=== PATIENT | female | born 1960 | race Hispanic/Latino ===

== ENCOUNTER 2021-06-04 14:25 | Emergency (ER) | payer OTHER ==
[~2021-06-04] VITALS: Ht 157.5 cm; Wt 59.0 kg
[~2021-06-04 14:25] MED LIST: CITALOPRAM HBR20 MG PO; CLONIDINE HCL0.1 MG PO; COZAAR50 MG PO; FENOFIBRATE54 MG PO; JANUMET 50-1,01 EACH PO; LEVOTHYROXINE50 MCG PO; VITAMIN D32000 UNI1 PO
[2021-06-04] MEDS ORDERED: AMLODIPINE BESYL5 MG PO (14:49)
[2021-06-04] MEDS ORDERED: METFORMIN HCL500 M1 PO (14:50)
[2021-06-04] MEDS ORDERED: HYDROCODON-ACE1 EA11 PO (15:46)
== END 2021-06-04 16:33 | disposition home or self-care (01) ==
LOC: ED 14:25
PROC: 2W3DX1Z Immobilization of Left Lower Arm using Splint (ICD-10-PCS; principal; 2021-06-04)
DX: S62.232A Other displaced fracture of base of first metacarpal bone, left hand, initial encounter for closed fracture (principal); S00.83XA Contusion of other part of head, initial encounter; I10 Essential (primary) hypertension; E11.9 Type 2 diabetes mellitus without complications; E03.9 Hypothyroidism, unspecified; Z87.891 Personal history of nicotine dependence; Z90.89 Acquired absence of other organs; Z79.899 Other long term (current) drug therapy; W01.0XXA Fall on same level from slipping, tripping and stumbling without subsequent striking against object, initial encounter; Y99.0 Civilian activity done for income or pay
CPT/HCPCS: 29105; 73130; 99284-25; A9270

== ENCOUNTER 2021-06-06 08:20 | Day surgery (SDC) | payer OTHER ==
[~2021-06-06 08:20] MED LIST changes: +AMLODIPINE BESYL5 MG PO; +HYDROCODON-ACE1 EA11 PO; +METFORMIN HCL500 M1 PO
--- NOTE | 2021-06-06 10:47 | NUR ---
UPDATED PT ON WAITING TIME PRIOR TO PROCEDURE. DENIES NEEDS. REPORTS CONTINUED 5/10 LEFT WRIST PAIN.
[2021-06-06] MEDS ORDERED: HYDROCODON-ACE1 EA10 PO (12:13)
--- NOTE | 2021-06-06 12:14 | NUR ---
06/06/21 1214 Sheets,Sunshine 1208 PT ARRIVED TO PACU ON 6L VIA MASK, PT ASLEEP AND SNORING NOTED. RESP EVEN AND UNLABORED. PILLOW PLACED UNDER LEFT ARM FOR ELEVATION. VSS.
--- NOTE | 2021-06-06 13:24 | NUR ---
1300: PATIENT BACK IN DAY SURGERY ROOM FROM PACU. DENIES PAIN. PATIENT DROWSY. C/O NUMBNESS TO LEFT FINGERS. CAP REFILL TO LEFT FINGERS WNL. LEFT HAND AND WRIST DRESSING CDI. LEFT ARM IN SLING. ICE PACK TO LEFT HAND. LEFT ARM ELEVATED ON PILLOW. IV SITE WNL. SCDs ON. TOLERATED WATER AND EATING SALTINE CRACKER. CALL LIGHT WITHIN REACH. 1320: PATIENT ASSISTED OOB AND TO BATHROOM. GAIT SLIGHTLY UNSTEADY. VOID WITHOUT DIFFICULTY. PATIENT ASSISTED BACK TO ROOM/BED. GAIT SLIGHTLY UNSTEADY BACK TO ROOM. SCDs REPLACED. IV SALINE LOCKED. CALL LIGHT WITHIN REACH.
--- NOTE | 2021-06-06 15:01 | NUR ---
REVIEWED DISCHARGE INSTRUCTIONS WITH PT AND SPOUSE AT BEDSIDE. RX GIVEN TO SPOUSE WITH COPY OF DISCHARGE INSTRUCTIONS. PT DENIES PAIN OR NAUSEA. STEADY ON FEET WITH ONE PERSON STAND BY ASSIST. AMBULATES TO BATHROOM AND VOIDS UNMEASURED URINE PRIOR TO DISCHARGE. DRESSED WITH HELP OF AND DISCHARGED VIA WC
--- NOTE | 2021-06-07 14:53 | EKG ---
[facility] [address] [facility] [place], [place] [address] Signed Normal sinus rhythm Nonspecific T wave abnormality Prolonged QT Abnormal ECG No previous ECGs available Confirmed by WALKER ALDRICH MD ([id number]) on 06/07/2021 2:53:22 PM Electronically Signed By: WALKER ALDIRCH MD 06/07/21 1453 PATIENT NAME: COOKIE MADRIGAL Electrocardiogram DATE OF : 60 PHYSICIAN: WALKER ALDRICH MD REPORT #: [id number] REPORT IS CONFIDENTIAL AND NOT TO BE RELEASED WITHOUT AUTHORIZATION
--- NOTE | 2021-06-09 14:34 | OR ---
[facility] [address] [place], [place] [address] Signed DATE OF OPERATION: 06/06/2021 SURGEON: Giovani Rdz MD PREOPERATIVE DIAGNOSIS: Left 1st metacarpal fracture displaced. POSTOPERATIVE DIAGNOSIS: Left 1st metacarpal fracture displaced. PROCEDURE PERFORMED: Closed reduction and percutaneous of left thumb metacarpal. TIRE AND TUBE REPAIRER: None. ANESTHESIA: General. BLOOD LOSS: None. IMPLANTS: Two 0.062 K-wires. BRIEF HISTORY: Lindsay is a 60-year-old female who suffered a fall down stairs at work fracturing her thumb. The thumb base was displaced and angulated. Risks and benefits of operative treatment were discussed with her and she elected to proceed. DESCRIPTION OF PROCEDURE: Once consent was obtained, she was taken to the operating room. After adequate anesthesia, she was placed on the operating room table with an armboard. The arm was then prepped and draped in a standard sterile fashion. Closed reduction was performed and the reduction was quite easy as fracture was quite unstable. The first K-wire was passed from the distal metacarpal shaft across the fracture engaging the body of the metacarpal base. A 2nd K-wire was placed from the lateral base across the fracture site engaging the body of the metacarpal. Both K-wires were cut and bent and Jurgan balls were applied. It was dressed with sterile gauze and a thumb spica cast. She Electronically Signed By: GIOVANI RDZ MD 06/09/21 1434 PATIENT NAME: LINDSAY MADRIGAL OPERATIVE REPORT DATE OF : 60 REPORT #: [id number] PHYSICIAN: GIOVANI RDZ MD PCP: HERMAN FREY MD REPORT IS CONFIDENTIAL AND NOT TO BE RELEASED WITHOUT AUTHORIZATION [address] [place], [place] [address] Signed tolerated the procedure well. All sponge, needle, and instrument counts were correct. Giovani Rdz MD /MODL /[id number] Copies: ~ Electronically Signed By: GIOVANI RDZ MD 06/09/21 1434 PATIENT NAME: LINDSAY MADRIGAL OPERATIVE REPORT DATE OF : 60 REPORT #: [id number] PHYSICIAN: GIOVANI RDZ MD PCP: HERMAN FREY MD REPORT IS CONFIDENTIAL AND NOT TO BE RELEASED WITHOUT AUTHORIZATION
== END 2021-06-06 14:50 | disposition home or self-care (01) ==
LOC: DS 08:20
PROVIDERS: ATTEND Specialist
PROC: 0PSQ34Z Reposition Left Metacarpal with Internal Fixation Device, Percutaneous Approach (ICD-10-PCS; principal; 2021-06-06 11:00)
DX: S62.232A Other displaced fracture of base of first metacarpal bone, left hand, initial encounter for closed fracture (principal); G89.18 Other acute postprocedural pain; E11.9 Type 2 diabetes mellitus without complications; E03.9 Hypothyroidism, unspecified; I10 Essential (primary) hypertension; E78.00 Pure hypercholesterolemia, unspecified; Z79.84 Long term (current) use of oral hypoglycemic drugs; Z87.891 Personal history of nicotine dependence; W10.8XXA Fall (on) (from) other stairs and steps, initial encounter
CPT/HCPCS: 01820; 64417; 73140; 76942; 80048; 93005; 93010; J0690; J1885; J2250; J2405; J2704; J7121; U0003

== ENCOUNTER 2025-03-16 08:00 | Day surgery (SDC) | payer BC, OTHER ==
[~2025-03-16] VITALS: Ht 157.5 cm; Wt 60.4 kg
[~2025-03-16 08:00] MED LIST changes: +HYDROCODON-ACE1 EA10 PO; +IBLOOD GLUCOSE TEST STRIP 1 EA TEST VI PRN; +LACTATED RINGER'S 1,000 ML IV SCH; +LIDOCAINE HCL 1% 5 ML SDV INJ ONE; +MIDAZOLAM HCL 5 MG/5 ML VIAL IV PRN; +OZEMPIC1 MG/0.71 SUB-Q; +fentaNYL citrate 100 MCG/2 ML VIAL IV PRN
[2025-03-16 08:19] VITALS: BP 116/85
[2025-03-16] MEDS ORDERED: MIDAZOLAM HCL 5 MG/5 ML VIAL ONE (09:22)
[2025-03-16] MEDS ORDERED: fentaNYL citrate 100 MCG/2 ML VIAL ONE (09:22)
--- NOTE | 2025-03-16 10:18 | NUR ---
03/16/25 Alfredo8 Wendi Avendano 1002- PT PRESENTS TO PACU, LEFT LATERAL POSITION, OPENS EYES BUT FALLS BACK TO SLEEP. BREATHING EVEN AND NON LABORED ON 3L O2 PER NC. LR INFUSING TO RFA IV. ABD SOFT, NON DISTENDED, ENCOURAGED TO PASS GAS. ALL MONITORS IN PLACE. 1009- DR BERNAL AT BEDSIDE, PT OPENS EYES. 1015- PT MOVED TO ROOM AIR AT THIS TIME, CONTINUE TO MONITOR.
[2025-03-16 10:42] VITALS: BP 119/84
--- NOTE | 2025-03-17 14:10 | OR ---
[facility] [address] [place], [place] [address] Signed DATE OF OPERATION: 03/16/2025 SURGEON: Sourav Bernal MD PREOPERATIVE DIAGNOSIS: Colon screening. POSTOPERATIVE DIAGNOSIS: Mild inflammation of rectum, possibly bowel prep related. PROCEDURE: Total colonoscopy to cecum with biopsies. ANESTHESIA: Intravenous sedation, fentanyl 100 mcg, and Versed 5 mg. INDICATION: This 64-year-old [place] woman is a patient Dr. Grissom and last underwent colonoscopy in [address] Ernesto Ralph, which was normal. She has no current symptoms of bleeding, diarrhea, or constipation and no family history of colon cancer. Based on interval of time since last screening colonoscopy, she has been recommended to have colonoscopy at this point. The risk of bleeding, infection, and perforation related to colonoscopy reviewed with her. She understands and wished to proceed. FINDINGS: The prep was excellent. Complete colonoscopy was undertaken of the cecum. There appeared to be mild inflammatory change throughout the colon, probably bowel prep related and not likely pathologic. However, biopsies were obtained to be certain of that. There were certainly no evidence of diverticulosis, no sign of polyps. DESCRIPTION OF PROCEDURE: The patient was brought to the endoscopy suite and placed in lateral decubitus position, given intravenous sedation to the point of slurred speech and nystagmus. Digital rectal examination was normal. She had some low-grade tightness to the sphincter, which was slightly uncomfortable at the outset, but no obvious true anal stricture. An Olympus video colonoscope was passed in the rectum and manipulated throughout the colon ultimately intubating the cecum itself. The ileocecal valve and appendiceal orifice were normal. The cecum appeared to have a somewhat edematous appearance and on that basis, biopsy was undertaken. Further withdrawal allowed for biopsy elsewhere to Electronically Signed By: SOURAV BERNAL MD 03/17/25 1410 PATIENT NAME: COOKIE MADRIGAL OPERATIVE REPORT DATE OF : 60 REPORT #: [id number] PHYSICIAN: SOURAV BERNAL MD PCP: HERMAN GRISSOM MD REPORT IS CONFIDENTIAL AND NOT TO BE RELEASED WITHOUT AUTHORIZATION [facility] [address] [place], [place] [address] Signed ascertain no evidence of occult colitis. Rectum was biopsied also. Retroflexed view was normal. Scope was removed. The patient was taken to recovery room in good condition. CONCLUDING DIAGNOSIS: Essentially normal colon, possibly a low-grade inflammation, possibly a bowel prep related. PLAN: Recommend repeat colonoscopy in 10 years, sooner if symptoms should develop. We will review her pathology reports to be certain. No underlying occult colitis is noted. She will return to the ongoing care of Dr. Grissom at [facility]. MD NEENA Bar/AUTUMN /[id number] cc: Dr. Grissom [facility] Copies: ~ Electronically Signed By: SOURAV BERNAL MD 03/17/25 1410 PATIENT NAME: COOKIE MADRIGAL OPERATIVE REPORT DATE OF : 60 REPORT #: [id number] PHYSICIAN: SOURAV BERNAL MD PCP: HERMAN GRISSOM MD REPORT IS CONFIDENTIAL AND NOT TO BE RELEASED WITHOUT AUTHORIZATION
--- NOTE | 2025-03-21 16:19 | PATH ---
[facility] [address] [facility] [place], [place] [address] Signed SPECIMEN(S): A CECUM BIOPSY SPECIMEN(S): B ASCENDING BIOPSY SPECIMEN(S): C SIGMOID BIOPSY SPECIMEN(S): D RECTUM BIOPSY SPECIMEN SOURCE: A. CECUM BIOPSY B. ASCENDING BIOPSY C. SIGMOID BIOPSY D. RECTUM BIOPSY CLINICAL HISTORY: Surveillance colonoscopy. Post-normal colon with mild proctitis A-D) biopsy FINAL PATHOLOGIC DIAGNOSIS: A. Cecum biopsy: - Benign colonic mucosa, negative for pathologic inflammation. B. Ascending biopsy: - Benign colonic mucosa, negative for pathologic inflammation. C. Sigmoid biopsy: - Benign colonic mucosa with slight hyperplastic features (one fragment). - Negative for pathologic inflammation. D. Rectum biopsy: - Benign colonic mucosa with slight hyperplastic features, negative for pathologic inflammation. JVR:clv MICROSCOPIC EXAMINATION: Histologic sections of all submitted blocks are examined by light microscopy. These findings, together with the gross examination, support the pathologic diagnosis. GROSS DESCRIPTION: A. The specimen, labeled and designated "Tveidt, cecum biopsy," is received in formalin and consists of two walker soft tissue fragments, ranging from 0.2-0.3 cm. Entirely submitted in (A1). B. The specimen, labeled and designated "Tveidt, ascending biopsy," is received in formalin and consists of two walker soft tissue fragments, ranging from 0.2-0.3 cm. Entirely submitted in (B1). C. The specimen, labeled and designated "Tveidt, sigmoid biopsy," is received PATIENT NAME: COOKIE MADRIGAL PATHOLOGY DATE OF : 60 REPORT #: [id number] PHYSICIAN: FELISHA LOPEZ PCP: HERMAN FREY MD REPORT IS CONFIDENTIAL AND NOT TO BE RELEASED WITHOUT AUTHORIZATION [facility] [address] [place], [place] [address] Signed in formalin and consists of two walker soft tissue fragments, ranging from 0.3-0.4 cm. Entirely submitted in (C1). D. The specimen, labeled and designated "Bill, rectum biopsy," is received in formalin and consists of three walker soft tissue fragments, ranging from 0.2-0.3 cm. Entirely submitted in (D1). AB (under the direct supervision of a pathologist) The Gross Description was prepared using a voice recognition system. The report was reviewed for accuracy; however, sound-alike word errors, addition and/or deletions may occur. If there is any question about this report, please contact Client Services. PERFORMING LABORATORY: Technical component was performed by [facility], [address] [place] [id number] (CLIA# [id number]). Professional interpretation was performed by [facility], [address] [place] [id number] (CLIA#: [id number]). Diagnostician: Umair Becerra MD Pathologist Electronically Signed 03/21/2025 Copies: ~ PATIENT NAME: COOKIE MADRIGAL PATHOLOGY DATE OF : 60 REPORT #: [id number] PHYSICIAN: FELISHA LOPEZ PCP: HERMAN FREY MD REPORT IS CONFIDENTIAL AND NOT TO BE RELEASED WITHOUT AUTHORIZATION
== END 2025-03-16 10:52 | disposition home or self-care (01) ==
LOC: DS 08:00
PROVIDERS: ATTEND Surgery
PROC: 0DBH8ZX Excision of Cecum, Via Natural or Artificial Opening Endoscopic, Diagnostic (ICD-10-PCS; principal; 2025-03-16 09:00)
DX: Z12.11 Encounter for screening for malignant neoplasm of colon (principal); K63.89 Other specified diseases of intestine; E11.9 Type 2 diabetes mellitus without complications; E03.9 Hypothyroidism, unspecified; I10 Essential (primary) hypertension; Z79.84 Long term (current) use of oral hypoglycemic drugs; Z79.85 Long-term (current) use of injectable non-insulin antidiabetic drugs; Z79.890 Hormone replacement therapy; Z79.899 Other long term (current) drug therapy
CPT/HCPCS: 99153; G0500; J2250; J3010; J7121